=== PATIENT | male | born 1945 | race Caucasian/White ===

== ENCOUNTER → 2017-12-06 08:56 | Outpatient (CLI) | payer OTHER, SELFPAY ==
[2017-12-06 11:17] LABS: HCT 45.7 % (40.0-50.0); HGB 15.4 g/dL (13.5-17.5); Mean Corp. HGB Concentration 33.7 g/dL (32.0-36.0); Mean Corpuscular Hemoglobin 31.2 pg (27.0-33.0); Mean Corpuscular Volume 92.7 fL (80-95); Platelet Count 255 x1000/uL (130-400); RBC 4.93 m/cumm (4.50-6.00); RBC Distribution Width 14.2 % (11.8-14.1); White Blood Cell Count 10.06 k/cumm (4.4-10.8)
[2017-12-06 11:32] LABS: Hemoglobin A1C 8.4 % (4.5-6.2)
[2017-12-06 11:43] LABS: ALT 16 U/L (12-78); AST 21 U/L (15-37); Albumin 3.4 g/dL (3.4-5.0); Alkaline Phosphatase 84 U/L (46-116); Anion Gap 8.5 mmol/L (3-11); BUN 24 mg/dL (7-18); Bilirubin, Total 0.7 mg/dL (0.2-1.0); CO2 27.5 mmol/L (21.0-32.0); CREATININE 1.34 mg/dL (0.70-1.30); Calcium 9.1 mg/dL (8.5-10.1); Chloride 102 mmol/L (98-107); Cholesterol 188 mg/dL (50-200); Glucose 178 mg/dL (70-100); HDL Cholesterol 55 mg/dL (40-60); LDL CHOLESTEROL 103 mg/dL (<100); Potassium 4.8 mmol/L (3.5-5.1); Sodium 138 mmol/L (136-145); Total Protein 6.9 g/dL (6.4-8.2); Triglyceride 249 mg/dL (30-150)
== END ==
PROVIDERS: PCP Family Medicine; Visit Provider Family Medicine
DX: E11.9 Type 2 diabetes mellitus without complications (principal); Z94.0 Kidney transplant status; M10.9 Gout, unspecified
CPT/HCPCS: 36415; 80053; 80061; 83721; 85027; 83036; 84550

== ENCOUNTER 2020-01-16 17:01 | Outpatient (CLI) | payer OTHER, SELFPAY ==
--- NOTE | 2020-01-16 14:53 | DI.RAD_ITS ---
EXAM: XR ARTHRITIS SERIES CLINICAL HISTORY: Bilateral thumb pain, suspecting CMC arthritis,M79.646,G89.29 TECHNIQUE: 2D digital imaging was performed. COMPARISON: No exams were available for comparison FINDINGS: Left hand: There is severe narrowing at the 1st carpal metacarpal joint. There is prominent spot spu rring and bony productive changes bony fragments around the joint. No erosions are seen. There is t here is mild narrowing of the interphalangeal joints of the fingers. No bony erosions are seen. The bones are normally mineralized. Right hand: There is marked narrowing of the 1st carpal metacarpal joint. There is moderate periarti cular spurring. No bony erosions are seen. The there is mild narrowing of the interphalangeal joint s of the fingers. There is an old nonunited ulnar styloid fracture. Vascular calcifications are see n. 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
== END 2020-01-16 17:21 ==
PROVIDERS: PCP Family Medicine; Visit Provider Nurse Practitioner Family
DX: M18.0 Bilateral primary osteoarthritis of first carpometacarpal joints (principal)
CPT/HCPCS: 73120

== ENCOUNTER 2021-09-06 02:39 | Outpatient (CLI) | payer OTHER, SELFPAY ==
[2021-09-06 12:47] LABS: Hemoglobin A1C 7.5 % (<5.7)
[2021-09-06 13:14] LABS: BUN 25 mg/dL (7-18); CREATININE 1.7 mg/dL (0.70-1.30); Calculated LDL 83 mg/dL (<100); Chloride 104 mmol/L (98-107); Cholesterol 196 mg/dL (<200); Glucose 186 mg/dL (74-106); HDL Cholesterol 47 mg/dL (40-60); Sodium 140 mmol/L (136-145); Triglyceride 331 mg/dL (<150)
== END 2021-09-06 02:40 | disposition home or self-care (01) ==
LOC: LOS 02:39
PROVIDERS: PCP Family Medicine; Visit Provider Family Medicine
DX: Z00.00 Encounter for general adult medical examination without abnormal findings (principal); E11.65 Type 2 diabetes mellitus with hyperglycemia; I10 Essential (primary) hypertension; E66.9 Obesity, unspecified
CPT/HCPCS: 36415; 80048; 80061; 83036

== ENCOUNTER 2022-01-09 20:10 | Outpatient (REF) | payer OTHER, SELFPAY ==
[2022-01-09 20:01] LABS: Abs Immature Grans 0.04 10^3/uL (0.0-0.06); Absolute Basophil Count 0.11 10^3/uL (0.0-0.2); Absolute Eosinophil Count 0.37 10^3/uL (0.0-0.7); Absolute Lymphocyte Count 2.61 10^3/uL (1.2-3.4); Absolute Neutrophil Count 3.53 10^3/uL (1.2-6.7); Basophils % 1.5; HCT 38.8 % (40.0-50.0); HGB 12.6 g/dL (13.5-17.5); Immature Grans % 0.5; Lymphocytes % 35.5; MCH 31.4 pg (27.0-33.0); MCHC 32.5 % (32.0-36.0); MCV 97 fL (80-95); MPV 10.1 fL (8.0-11.0); Monocytes % 9.5; Platelet Count 401 10^3/uL (130-400); RBC 4.01 10^6/uL (4.36-5.78); RDW 13.5 % (11.8-14.1); RDW-SD 48.4 fL; WBC 7.36 10^3/uL (4.4-10.8)
[2022-01-09 20:24] LABS: ALT 12 U/L (16-63); AST 17 U/L (15-37); Albumin 3.3 g/dL (3.4-5.0); Alkaline Phosphatase 94 U/L (46-116); Anion Gap 9.2 mmol/L (3-11); BUN 29 mg/dL (7-18); Bilirubin, Total 0.5 mg/dL (0.2-1.0); CO2 27.8 mmol/L (21.0-32.0); CREATININE 1.6 mg/dL (0.70-1.30); Calcium 9.8 mg/dL (8.5-10.1); Chloride 101 mmol/L (98-107); Estimated GFR 44.93 (mL/min/1.73m2); Glucose 184 mg/dL (74-106); Potassium 4.4 mmol/L (3.5-5.1); Sodium 138 mmol/L (136-145); Total Protein 7.8 g/dL (6.4-8.2)
[2022-01-09 20:51] LABS: Vancomycin, Trough 22.3 ug/mL (10.0-20.0)
== END 2022-01-09 20:11 | disposition home or self-care (01) ==
LOC: LBN 20:10
PROVIDERS: PCP Family Medicine
DX: L03.311 Cellulitis of abdominal wall (principal); R78.81 Bacteremia; Z79.2 Long term (current) use of antibiotics
CPT/HCPCS: 80053; 80202; 85025

== ENCOUNTER 2022-01-14 16:15 | Outpatient (REF) | payer OTHER, SELFPAY ==
[2022-01-14 16:45] LABS: BUN 23 mg/dL (7-18); CREATININE 1.5 mg/dL (0.70-1.30); Estimated GFR 48.55 (mL/min/1.73m2); Vancomycin, Trough 17.3 ug/mL (10.0-20.0)
== END 2022-01-14 16:16 | disposition home or self-care (01) ==
LOC: LBN 16:15
PROVIDERS: PCP Family Medicine; Visit Provider Internal Medicine Infectious Disease
DX: L03.311 Cellulitis of abdominal wall (principal)
CPT/HCPCS: 84520; 80202; 82565

== ENCOUNTER 2022-01-16 16:27 | Outpatient (REF) | payer OTHER, SELFPAY ==
[2022-01-16 19:01] LABS: Basophils % 1.2; Eosinophils % 3.8; HCT 36.9 % (40.0-50.0); HGB 12.4 g/dL (13.5-17.5); Lymphocytes % 36.6; MCH 31.8 pg (27.0-33.0); MCHC 33.6 % (32.0-36.0); MCV 95 fL (80-95); MPV 10.2 fL (8.0-11.0); Monocytes % 10.9; Neutrophils % 47.2; Platelet Count 290 10^3/uL (130-400); RDW 13.8 % (11.8-14.1); RDW-SD 48.1 fL; WBC 6.86 10^3/uL (4.4-10.8)
[2022-01-16 19:02] LABS: Abs Immature Grans 0.02 10^3/uL (0.0-0.06); Absolute Basophil Count 0.08 10^3/uL (0.0-0.2); Absolute Eosinophil Count 0.26 10^3/uL (0.0-0.7); Absolute Lymphocyte Count 2.51 10^3/uL (1.2-3.4); Absolute Monocyte Count 0.75 10^3/uL (0.1-0.8); Absolute Neutrophil Count 3.24 10^3/uL (1.2-6.7); Immature Grans % 0.3
[2022-01-16 19:15] LABS: ALT 14 U/L (16-63); AST 11 U/L (15-37); Albumin 3.5 g/dL (3.4-5.0); Alkaline Phosphatase 88 U/L (46-116); Anion Gap 8.2 mmol/L (3-11); BUN 23 mg/dL (7-18); Bilirubin, Total 0.5 mg/dL (0.2-1.0); CO2 27.8 mmol/L (21.0-32.0); CREATININE 1.5 mg/dL (0.70-1.30); Chloride 101 mmol/L (98-107); Estimated GFR 48.55 (mL/min/1.73m2); Glucose 117 mg/dL (74-106); Potassium 4.7 mmol/L (3.5-5.1); Sodium 137 mmol/L (136-145); Total Protein 7.7 g/dL (6.4-8.2); Vancomycin, Trough 19.5 ug/mL (10.0-20.0)
== END 2022-01-16 16:28 | disposition home or self-care (01) ==
LOC: LBN 16:27
PROVIDERS: PCP Family Medicine; Visit Provider Internal Medicine Infectious Disease
DX: L03.311 Cellulitis of abdominal wall (principal); R78.81 Bacteremia; Z79.2 Long term (current) use of antibiotics
CPT/HCPCS: 80053; 80202; 85025

== ENCOUNTER 2022-01-20 17:15 | Outpatient (REF) | payer OTHER, SELFPAY ==
[2022-01-20 20:20] LABS: BUN 24 mg/dL (7-18); CREATININE 1.7 mg/dL (0.70-1.30); Estimated GFR 41.78 (mL/min/1.73m2); Vancomycin, Trough 18.3 ug/mL (10.0-20.0)
== END 2022-01-20 17:16 | disposition home or self-care (01) ==
LOC: LBN 17:15
PROVIDERS: PCP Family Medicine; Visit Provider Nurse Practitioner
DX: R78.81 Bacteremia (principal); L03.311 Cellulitis of abdominal wall; Z79.2 Long term (current) use of antibiotics; B95.62 Methicillin resistant Staphylococcus aureus infection as the cause of diseases classified elsewhere
CPT/HCPCS: 84520; 80202; 82565

== ENCOUNTER 2022-01-23 11:00 | Outpatient (REF) | payer OTHER, SELFPAY ==
[2022-01-23 23:11] LABS: ALT 16 U/L (16-63); AST 10 U/L (15-37); Albumin 3.5 g/dL (3.4-5.0); Alkaline Phosphatase 80 U/L (46-116); Anion Gap 8.9 mmol/L (3-11); BUN 22 mg/dL (7-18); Bilirubin, Total 0.3 mg/dL (0.2-1.0); C-Reactive Protein 0.46 mg/dL (0.0-0.3); CO2 29.1 mmol/L (21.0-32.0); CREATININE 1.7 mg/dL (0.70-1.30); Calcium 10.2 mg/dL (8.5-10.1); Chloride 101 mmol/L (98-107); Estimated GFR 41.78 (mL/min/1.73m2); Glucose 166 mg/dL (74-106); Potassium 4.7 mmol/L (3.5-5.1); Sodium 139 mmol/L (136-145); Total Protein 6.8 g/dL (6.4-8.2)
== END 2022-01-23 11:01 | disposition home or self-care (01) ==
LOC: LBN 11:00
PROVIDERS: PCP Family Medicine; Visit Provider Internal Medicine Infectious Disease
DX: Z79.899 Other long term (current) drug therapy (principal); Z79.2 Long term (current) use of antibiotics; L03.311 Cellulitis of abdominal wall; R78.81 Bacteremia
CPT/HCPCS: 80053; 86140

== ENCOUNTER 2022-01-24 12:28 | Outpatient (REF) | payer OTHER, SELFPAY ==
[2022-01-24 14:20] LABS: Abs Immature Grans 0.02 10^3/uL (0.0-0.06); Absolute Basophil Count 0.04 10^3/uL (0.0-0.2); Absolute Eosinophil Count 0.32 10^3/uL (0.0-0.7); Absolute Lymphocyte Count 2.58 10^3/uL (1.2-3.4); Absolute Monocyte Count 0.69 10^3/uL (0.1-0.8); Absolute Neutrophil Count 4.31 10^3/uL (1.2-6.7); Basophils % 0.5; HCT 35.9 % (40.0-50.0); Immature Grans % 0.3; Lymphocytes % 32.4; MCH 31.5 pg (27.0-33.0); MCHC 33.4 % (32.0-36.0); MCV 94 fL (80-95); MPV 10.1 fL (8.0-11.0); Monocytes % 8.7; Neutrophils % 54.1; Platelet Count 261 10^3/uL (130-400); RBC 3.81 10^6/uL (4.36-5.78); RDW 13.8 % (11.8-14.1); RDW-SD 47.9 fL; WBC 7.96 10^3/uL (4.4-10.8)
== END 2022-01-24 12:29 | disposition home or self-care (01) ==
LOC: LBN 12:28
PROVIDERS: Visit Provider Internal Medicine Infectious Disease
DX: Z79.899 Other long term (current) drug therapy (principal); Z79.2 Long term (current) use of antibiotics
CPT/HCPCS: 85025

== ENCOUNTER 2022-02-07 10:07 | Outpatient (CLI) | payer OTHER, SELFPAY ==
[2022-02-07 12:43] LABS: Abs Immature Grans 0.03 10^3/uL (0.0-0.06); Absolute Basophil Count 0.04 10^3/uL (0.0-0.2); Absolute Eosinophil Count 0.38 10^3/uL (0.0-0.7); Absolute Lymphocyte Count 2.56 10^3/uL (1.2-3.4); Absolute Monocyte Count 0.74 10^3/uL (0.1-0.8); Absolute Neutrophil Count 5.18 10^3/uL (1.2-6.7); Basophils % 0.4; Eosinophils % 4.3; HCT 37.4 % (40.0-50.0); HGB 12.3 g/dL (13.5-17.5); Immature Grans % 0.3; Lymphocytes % 28.7; MCH 31.5 pg (27.0-33.0); MCHC 32.9 % (32.0-36.0); MCV 96 fL (80-95); Monocytes % 8.3; Platelet Count 301 10^3/uL (130-400); RBC 3.91 10^6/uL (4.36-5.78); RDW 14.2 % (11.8-14.1); RDW-SD 49.3 fL; WBC 8.93 10^3/uL (4.4-10.8)
[2022-02-07 13:02] LABS: ALT 11 U/L (16-63); AST 10 U/L (15-37); Albumin 3.4 g/dL (3.4-5.0); Alkaline Phosphatase 96 U/L (46-116); Anion Gap 7.8 mmol/L (3-11); BUN 21 mg/dL (7-18); Bilirubin, Total 0.4 mg/dL (0.2-1.0); CO2 28.2 mmol/L (21.0-32.0); CREATININE 1.5 mg/dL (0.70-1.30); Calcium 9.4 mg/dL (8.5-10.1); Calculated LDL 62 mg/dL (<100); Chloride 103 mmol/L (98-107); Cholesterol 134 mg/dL (<200); Estimated GFR 48.55 (mL/min/1.73m2); Glucose 138 mg/dL (74-106); HDL Cholesterol 49 mg/dL (40-60); Potassium 4.6 mmol/L (3.5-5.1); Sodium 139 mmol/L (136-145); Total Protein 7.2 g/dL (6.4-8.2); Triglyceride 119 mg/dL (<150)
[2022-02-07 13:33] LABS: Hemoglobin A1C 7.1 % (<5.7)
[2022-02-07 14:28] LABS: COMMENT (LAB VIEW ONLY) 192.19 mg/dL; Microalb ug/mg Crea 4.7 ug/mg Cr
== END 2022-02-07 10:08 | disposition home or self-care (01) ==
LOC: LOS 10:07
PROVIDERS: PCP Family Medicine; Visit Provider Family Medicine
DX: Z94.0 Kidney transplant status (principal); E11.65 Type 2 diabetes mellitus with hyperglycemia
CPT/HCPCS: 36415; 80053; 80061; 82043; 82570; 83036; 85025

== ENCOUNTER 2023-08-13 18:11 | Outpatient (CLI) | payer OTHER, SELFPAY ==
[2023-08-13 15:35] LABS: Calculated LDL 88 mg/dL (<100); Cholesterol 180 mg/dL (<200); HDL Cholesterol 56 mg/dL (40-60); Triglyceride 184 mg/dL (<150)
[2023-08-13 16:23] LABS: COMMENT (LAB VIEW ONLY) 79.05 mg/dL; Microalb ug/mg Crea 81.6 ug/mg Cr
[2023-08-13 22:18] LABS: PSA, Screening 3.1 ng/mL (<=6.5)
[2023-08-13 22:55] LABS: Hepatitis C Ab w Rflx HCV PCR Negative (Negative)
== END 2023-08-13 18:12 | disposition home or self-care (01) ==
LOC: LBO 18:12
PROVIDERS: Nurse Practitioner Family; PCP Family Medicine; Visit Provider Family Medicine
DX: Z00.00 Encounter for general adult medical examination without abnormal findings (principal); Z12.5 Encounter for screening for malignant neoplasm of prostate; E11.9 Type 2 diabetes mellitus without complications; Z79.4 Long term (current) use of insulin
CPT/HCPCS: 36415; 80061; 84153; 86803; 82043; 82570

== ENCOUNTER 2024-02-12 14:56 | Outpatient (CLI) | payer OTHER, SELFPAY ==
[2024-02-12 14:01] LABS: ALT 17 U/L (16-63); AST 12 U/L (15-37); Albumin 3.4 g/dL (3.4-5.0); Alkaline Phosphatase 83 U/L (46-116); Anion Gap 9.1 mmol/L (3-11); BUN 42 mg/dL (7-18); CO2 28.9 mmol/L (21.0-32.0); CREATININE 3.1 mg/dL (0.70-1.30); Calcium 10.3 mg/dL (8.5-10.1); Chloride 105 mmol/L (98-107); Estimated GFR 20.07 (mL/min/1.73m2); Glucose 213 mg/dL (74-106); Potassium 5.1 mmol/L (3.5-5.1); Sodium 143 mmol/L (136-145); Total Protein 7.3 g/dL (6.4-8.2)
[2024-02-12 14:03] LABS: Hemoglobin A1C 7.3 % (<5.7)
== END 2024-02-12 14:57 | disposition home or self-care (01) ==
LOC: LBO 15:02
PROVIDERS: PCP Family Medicine; Visit Provider Family Medicine
DX: E11.9 Type 2 diabetes mellitus without complications (principal); Z12.5 Encounter for screening for malignant neoplasm of prostate; N02.8 Recurrent and persistent hematuria with other morphologic changes; Z94.0 Kidney transplant status; I10 Essential (primary) hypertension
CPT/HCPCS: 36415; 80053; 83036

== ENCOUNTER 2025-03-19 14:36 | Outpatient (CLI) | payer OTHER, SELFPAY ==
--- NOTE | 2025-03-19 14:30 | RT.EKG_ITS ---
APPROVED REPORT Exam: Resting ECG Reason for Exam: Irregular heartbeat Patient Location: O HR:60 bpm ECG Measurements Heart Rate 60 AXIS MN 220 P 36 QRSd 85 QRS -38 QT 406 T 53 QTc 406 Conclusion Sinus rhythm...normal P axis, V-rate 50- 99 Prolonged MN interval...MN >220, V-rate 50- 90 Left anterior fascicular block
== END 2025-03-19 14:37 | disposition home or self-care (01) ==
LOC: DI.CM 14:37
PROVIDERS: PCP Family Medicine; Visit Provider Nurse Practitioner Family
DX: I49.9 Cardiac arrhythmia, unspecified (principal); R00.1 Bradycardia, unspecified; I49.3 Ventricular premature depolarization; I44.4 Left anterior fascicular block
CPT/HCPCS: 93010

== ENCOUNTER 2025-03-19 16:09 | Emergency (ER) | payer OTHER, SELFPAY ==
[2025-03-19] VITALS (12 sets, daily range): BP systolic 131–171; BP diastolic 61–93; PULSE 50–70; RESP 9–18; TEMP 36.6; O2SAT 95–97
--- NOTE | 2025-03-19 16:00 | RT.EKG_ITS ---
APPROVED REPORT Exam: Resting ECG Reason for Exam: chest pain Patient Location: E HR:56 bpm ECG Measurements Heart Rate [address] 228 P 68 QRSd 90 QRS -63 QT 405 T 57 QTc 388 Conclusion Sinus bradycardia...rate< 60 Ventricular premature complex...V complex w/ short R-R interval Prolonged CT interval...CT >220, V-rate 50- 90 Left anterior fascicular block...axis(240,-40), init forces inf Anteroseptal infarct, old...Q >40mS, V1-V2
--- NOTE | 2025-03-19 16:45 | DI.RAD_ITS ---
Exam(s) XR PORTABLE CHEST AP EXAM: XR PORTABLE CHEST AP CLINICAL HISTORY: Chest pain TECHNIQUE: 2D digital imaging was performed of the chest. One image was obtained. An AP view was obtained. COMPARISON: No exams were available for comparison FINDINGS: MEDIASTINUM: Normal. HEART: Normal. PULMONARY VASCULATURE: Normal. LUNGS: Clear. PLEURAL SPACE: No pleural effusion or pneumothorax. BONE:Within normal limits for the patient's age. OTHER FINDINGS:Normal. IMPRESSION: No acute pulmonary findings. DATA REPOSITORY: RADIATION DOSE DELIVERED:
--- NOTE | 2025-03-19 16:48 | W.ED.GENAD ---
Discharge Plan Disposition Patient Disposition: Home Condition: Stable Discharge Details Clinical Impression: Chest pain Primary Care Provider: Valeria Serrato ED Provider: Umang Thornton Home Meds and New Rx's Prescriptions: Continued losartan 25 mg tablet 25 mg PO DAILY Envarsus XR 0.75 mg tablet extended release 24 hr 0.75 mg PO DAILY Rx Instructions: must be taken on empty stomach betamethasone dipropionate 0.05 % cream 1 applic topical PRN Patient Comments: APPLY TOPICALLY TO AFFECTED AREAS OF DERMATITIS TWICE DAILY NEEDED allopurinol 300 mg tablet 150 mg PO DAILY diltiazem HCl 120 mg capsule,ext.rel 24h degradable 120 mg PO BID Qty: 180 4RF (DME) blood-glucose meter 1 EACH misc 1 ea Miscellaneous ONCE Qty: 1 Rx Instructions: FREESTYLE LITE METER DIAGNOSIS CODE 250.00 TAKING INSULIN empagliflozin 10 mg tablet 10 mg PO DAILY Qty: 90 3RF (DME) lancets [FreeStyle Lancets] 28 gauge misc See Rx Instructions .ROUTE .COMPLEX Qty: 100 3RF Dose Instruction: TEST daily Rx Instructions: TEST daily (DME) FreeStyle Lite Strips Strip See Rx Instructions .ROUTE .COMPLEX Qty: 100 2RF Dose Instruction: TEST daily Rx Instructions: TEST daily Tradjenta 5 mg tablet 5 mg PO DAILY pravastatin 40 mg tablet 40 mg PO DAILY calcitriol 0.5 mcg capsule 0.5 mcg PO DAILY Discharge Instructions Instructions: Troponin Test, Chest Pain, Adult ED Stand Alone Forms: Portal Information Referrals: Valeria Serrato MD [Primary Care Provider, Medicine] Referral Note: Make sure you get your stress test done Discharge Data Discharge Physician: Umang Thornton HPI General Date/Time Provider Initiated Documentation: 03/19/25 16:48. HPI Narrative: Patient presents to our department complaining of 3 weeks of substernal chest pressure that goes on and off sometimes at rest. He states that he is an avid bike rider but stopped riding his bike because of cold. He also has a history of a kidney transplant 20 years ago. States that the only thing changes they stopped his calcium 3 weeks ago. Denies any shortness of breath denies any cough, states that at some point a week ago had an episode of palpitations that subsided Related Data Home Medications ?Medication ?Instructions ?Recorded ?Confirmed blood-glucose meter #1 ea 06/20/13 03/19/25 allopurinol 300 mg tablet 150 mg PO DAILY 12/19/19 03/19/25 diltiazem HCl 120 mg 120 mg PO BID #180 caps 12/19/19 03/19/25 capsule,extended release 24 hr, controlled losartan 25 mg tablet 25 mg PO DAILY 02/04/21 03/19/25 tacrolimus 0.75 mg tablet,extended 0.75 mg PO DAILY 02/09/23 03/19/25 release 24 hr (Envarsus XR) empagliflozin 10 mg tablet 10 mg PO DAILY #90 tabs 12/12/23 03/19/25 betamethasone dipropionate 0.05 % 1 applic topical PRN 02/13/24 03/19/25 topical cream blood sugar diagnostic (FreeStyle #100 ea 06/04/24 03/19/25 Lite Strips) lancets 28 gauge (FreeStyle #100 ea 06/04/24 03/19/25 Lancets) linagliptin 5 mg tablet (Tradjenta) 5 mg PO DAILY 03/13/25 03/19/25 calcitriol 0.5 mcg capsule 0.5 mcg PO DAILY 03/19/25 03/19/25 pravastatin 40 mg tablet 40 mg PO DAILY 03/19/25 03/19/25 Previous Rx's ?Medication ?Instructions ?Recorded diltiazem HCl 120 mg 120 mg PO BID #180 caps 12/19/19 capsule,extended release 24 hr, controlled empagliflozin 10 mg tablet 10 mg PO DAILY #90 tabs 12/12/23 blood sugar diagnostic (FreeStyle #100 ea 06/04/24 Lite Strips) lancets 28 gauge (FreeStyle #100 ea 06/04/24 Lancets) Allergies Allergy/AdvReac Type Severity Reaction Status Date / Time lisinopril Allergy Severe rash, Verified 03/19/25 16:14 itching sulfamerazine Allergy Unknown Verified 03/19/25 16:14 General Stated Complaint: Chest Pain NATIVIDAD: 3 Review of Systems Narrative: Review of Systems: Constitutional: No fevers, chills, sweats Eye: No recent visual problems ENT: No ear pain, nasal congestion, sore throat Respiratory: No shortness of breath, cough Cardiovascular: palpitations, syncope Gastrointestinal: No nausea, vomiting, diarrhea Genitourinary: No hematuria Trevon/Lymph: Negative for bruising tendency, swollen lymph glands Endocrine: Negative for excessive thirst, excessive hunger Musculoskeletal: No back pain, neck pain, joint pain, muscle pain, decreased range of motion Integumentary: No rash, pruritus, abrasions Neurologic: Alert & oriented X 4 Psychiatric: No anxiety, depression Exam Narrative Exam Narrative: Exam; vitals signs as reported above normal Constitutional; In no acute distress, afebrile General: cooperative, healthy appearing, comfortable and no acute distress HEENT: Head: normal to inspection, no palpable skull fracture and normocephalic atraumatic Eyes: : appearance normal, both eyes and all related structures EOM intact bilaterally Pupils: PERRL : conjunctiva normal Direct ophthalmoscopy: normal light reflex, normal conjunctiva, normal visual acuity Ears: Normal TM, normal external canal Nose: normal no rhinorreha Neck no JVD, supple non tender Neck: normal visual inspection, full ROM and no lymphadenopathy Chest: normal inspection of the chest Respiratory : normal respiratory effort and able to speak in complete sentences no wheezing no rales Cardio Rate: regular rate, rhythm: regular rhythm normal heart sounds S1 and S2 no murmurs, gallops, or rubs GI : normal to inspection, normal bowel sounds, soft, non tender, non distended, no organomegaly Back/Spine/ no CVA tenderness Thoracic/Lumbar Spine: no tenderness or deformities Skin no rashes or lesions Neuro: patient alert oriented x 4 and no meningeal signs, Cranial Nerves: CN's II-XI intact bilaterally, Cognition: normal cognition, Speech: speech normal, Gait: normal gait, Depp tendon reflexes normal 2+ muscle strength 5/5 bilaterally Extremities, no edema, full range of motion, normal strength Course Vital Signs Vital signs: Vital Signs Temperature 36.6 C 03/19/25 16:11 Pulse 62 03/19/25 16:11 Respiratory Rate 16 03/19/25 16:11 Blood Pressure 144/68 H 03/19/25 16:11 Pulse Oximetry 97 03/19/25 16:11 Temperature 36.6 C 03/19/25 16:11 Pulse 62 03/19/25 16:11 Respiratory Rate 16 03/19/25 16:11 Blood Pressure 144/68 H 03/19/25 16:11 Pulse Oximetry 97 03/19/25 16:11 Pain Level 3 03/19/25 16:11 Medical Decision Making MDM: Summary: Patient presents emergency department complaining of chest pressure this been going on for weeks goes on and off not associated with exercise or rest. States he had a stress test last April which was normal. States that he exercise by riding a bike and has never had this chest pressure. EKG was done which does not show any acute abnormality. Labs which include D-dimer and troponin were negative. 2 troponins done were negative. Patient has a history of a renal transplant done 20 years ago and his creatinine is stable at 2.3. [id number] ultrasound of the echocardiogram was done which shows no pericardial effusion no regional wall abnormalities and normal echocardiogram. Patient has a heart score of 2 he will be discharged home and I advised him he needs to have a stress test which she is due now which they do every year because he is renal transplant patient at this time screening does not show indicate that this could be acute coronary syndrome. Data Review Analysis All the data on this patient was reviewed by me including laboratory and imaging studies as well as bedside studies performed by me Independent review of Studies Imaging POCUS as described above Lab: Labs include 2 troponins and D-dimer negative Risk Stratification: Patient with a heart score of 2 will be discharged home with follow-up Differential Diagnosis: 1. Noncardiac chest pain 2. Acute coronary syndrome 3. Pulmonary embolus 4. Pericardial effusion 5. Consultants: Shared disposition: Patient is send this position him and his are going to follow according Impression: Medical Records Medical records reviewed: Yes I reviewed the patient's medical records. Lab Data Lab results reviewed: Yes I reviewed the patient's lab results. ECG Data Attestation: I personally reviewed and interpreted this ECG (s) as follows: Prior ECG tracings: available for review Interpretation: Heart rate 56 sinus bradycardia left anterior fascicular block PVC no acute ST-T changes PFSH All Active Problems Chest pain (Acute) Impacted cerumen, bilateral (Acute) Type 2 diabetes mellitus (Chronic) Asymmetrical sensorineural hearing loss (Chronic) Erectile dysfunction associated with type 2 diabetes mellitus (Chronic) no improvement with viagra, did have improvement with cialis. 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 Monitoring for recurrent IgA nephropathy. Medical History ESRD (end stage renal disease) Due to IgA Nephropathy MRSA bacteremia (~12/2021) felt to be infected mesh from hernia repair; [place] [facility] [place] managed with Vanco x 4 weeks. Diverticulosis of colon without diverticulitis Internal hemorrhoids without complication Polyp of colon Surgical History S/P kidney transplant (12/07/04) H/O superficial parotidectomy Right-sided, pleomorphic adenoma History of colonoscopy with polypectomy 2018 Family History Mother , 86 Neoplasm BRAIN Brain cancer Father , 82 Heart disease Lung cancer Maternal Grandfather , 65 Lung cancer Paternal Grandfather , 85 No problems noted. Maternal Grandmother , 85 No problems noted. Paternal Grandmother , 63 Heart disease Stroke Sister , 75 No problems noted. Sister , 74 No problems noted. Sister , 69 No problems noted. Sister , 60 No problems noted. Sister , 59 No problems noted. Brother , 77 No problems noted. Brother , 72 No problems noted. Brother , 70 No problems noted. Brother , 66 No problems noted. Brother , 64 No problems noted. 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 Pets and animals: Yes Pets and animals: fish Sexually active: Yes Do you think of yourself as: straight/heterosexual Current gender identity: male What is your relationship status?: How often do you talk on the phone with friends or family?: three or more times per week How often do you get together with friends or relatives?: once per week How often do you attend anglican or nondenominational services?: 4 or more times per year Do you belong to any clubs or organized social groups?: no Panel score (0-1 are the most socially isolated patients): 3 What type of physical activity do you participate in: walking, advised to exercise at least 150 min/week (moderate intensity aerobic) and advised to perform resistance training at least 2x/week Duration: 15-30 minutes/day Frequency: 5-6 times per week Francia/Quaker: Pentacostal Special francia needs: No Seatbelt use: always Helmet use: No Drive intox or ride w/intox industrial tractor driver: No Firearms in home: Yes Firearms unloaded and locked: Yes Do you feel safe at home: Yes Do you feel safe in your relationship?: Yes Would you like helpful sources: No POCUS Exam (ED) Limited Cardiac Exam DATE OF EXAM: 03/19/25 TIME OF EXAM: 18:45 PROVIDER THAT PERFORMED THE STUDY: Umang Thornton IS THIS A REPEAT EXAM DURING THIS ENCOUNTER: no REASON FOR EXAM: Chest pain VISUALIZED STRUCTURES: Four Chambers, Left atrium, Left ventricle, LVOT, Right atrium, Right ventricle, Aortic valve, Mitral valve, Interventricular septum and IVC VIEW OBTAINED: Apical 4-Chamber, Parasternal long-axis, Parasternal short-axis and Subxiphoid PERTINENT FINDINGS/IMPRESSION: No apparent abnormalities Exam complete
[2025-03-19 17:33] LABS: Abs Immature Grans 0.02 10^3/uL (0.0-0.06); HCT 41.8 % (40.0-50.0); HGB 14.5 g/dL (13.5-17.5); Immature Grans % 0.3 %; MCH 32.6 pg (27.0-33.0); MCHC 34.7 % (32.0-36.0); MCV 94 fL (80-95); MPV 9.8 fL (8.0-11.0); Platelet Count 235 10^3/uL (130-400); RBC 4.45 10^6/uL (4.36-5.78); RDW 14.1 % (11.8-14.1); RDW-SD 48.8 fL; WBC 7.40 10^3/uL (4.4-10.8)
[2025-03-19 17:43] LABS: Lipase 57 U/L (<53)
[2025-03-19 17:44] LABS: Troponin I 3 ng/L (<54)
[2025-03-19 17:45] LABS: ALT 15 U/L (10-49); AST 16 U/L (<34); Albumin 3.9 g/dL (3.2-5.0); Alkaline Phosphatase 70 U/L (46-116); Anion Gap 8.6 mmol/L (3-11); BUN 35 mg/dL (9-23); Bilirubin, Total 0.50 mg/dL (0.2-1.2); CO2 25.4 mmol/L (20.0-31.0); Calcium 9.4 mg/dL (8.3-10.6); Chloride 107 mmol/L (98-107); Glucose 156 mg/dL (74-106); Potassium 4.7 mmol/L (3.5-5.1); Sodium 141 mmol/L (136-145); Total Protein 7.0 g/dL (5.7-8.2)
[2025-03-19 17:52] LABS: D-Dimer 294 ng/mlFEU (<500)
[2025-03-19 18:36] LABS: Glucose >=1000 mg/dL (Negative)
[2025-03-19 18:42] LABS: Troponin I 3 ng/L (<54)
[2025-03-19 18:44] LABS: C & S Indicated? No; RBC Negative HPF (0-2); WBC Negative HPF (0-5)
== END 2025-03-19 19:25 | disposition home or self-care (01) ==
PROVIDERS: Emergency Provider Emergency Medicine Emergency Medical Services; PCP Family Medicine
DX: R07.9 Chest pain, unspecified (principal)
CPT/HCPCS: 99284; 99285; 80053; 83690; 93005; 93308; 71045; 81003; 81015; 83880; 84484; 85025; 85379; 93010

== ENCOUNTER 2025-03-26 13:40 | Outpatient (CLI) | payer OTHER, SELFPAY | END 2025-03-26 13:41 | disposition home or self-care (01) | PROVIDERS: PCP Family Medicine; Visit Provider Family Medicine | DX: R07.89 Other chest pain (principal); R00.2 Palpitations | CPT/HCPCS: 93246 ==